=== PATIENT | female | born 1960 | race Hispanic/Latino ===

== ENCOUNTER 2020-02-22 11:00 | Emergency (ER) | payer SELFPAY ==
[~2020-02-22] VITALS: Ht 165.1 cm; Wt 74.8 kg
--- NOTE | 2020-02-22 13:24 | Diagnostic Imaging Report ---
X-ray chest AP portable Comparison: None History: Cough fever Findings: Central airways unremarkable. Heart size normal. Atherosclerotic tortuous aorta. No pleural effusion. No pneumothorax. Bilateral lower lung zone focal opacities. Right-sided appear more rounded. Left side appear more discoid. Visualized skeleton and upper abdomen unremarkable. Impression: Bilateral lower lung zone opacities. Viral pneumonitis cannot be ruled out. Clinical correlation is recommended. Signed by: Julio Mckeon MD on 02/22/2020 1:20 PM
[2020-02-22] MEDS ORDERED: AZITHROMYCIN250 MG PO (13:38)
--- NOTE | 2020-03-11 15:03 | Emergency Department Note ---
History of Present Illnes History of Present Illness Chief Complaint: COVID PUI History of Present Illness This is a 59 year old female arrives to the ED with complaints of cough fever and generalized malaise . HERE FOR COUGH AND SHORTNESS OF BREATH, CLIENT STATES THAT SHE HAS BEEN COUGHING SINCE SATURDAY AND WAS TESTED FOR COVID ON SATURDAY AND STILL AWAITING RESULTS. CURRENTLY ON ABX, ALBUTEROL AND COUGH SYRUP. ALERT AND ORIENTED X4, VSS. Historian: Patient Arrival Mode: Car Onset (how long ago): day(s) Severity: mild Duration (how long): day(s) Timing of current episode: constant Progression: unchanged Chronicity: new Relieving factors: none Past Medical/Family History Physician Review I have reviewed the patient's past medical and family history. Any updates have been documented here. Past Medical History Recent Fever: Yes Clinical Suspicion of Infectio: Yes New/Unexplained Change in Ment: No Past Medical History: Diabetes Past Surgical History: None Social History Smoking Cessation: Never Smoker Alcohol Use: None Any Illegal Drug Use: No TB Exposure/Symptoms: No Physically hurt or threatened: No Other Last Tetanus: OOD Any Pre-Existing Lines (PICC,: No Is patient up to date on immun: Yes Last Flu: NONE Last Pneumovax: NONE Review of Systems Review of Systems Constitutional: Reports as per HPI, Reports malaise, Reports weakness EENTM: Reports no symptoms Cardiovascular: Reports no symptoms Respiratory: Reports as per HPI, Reports cough, Reports dyspnea Gastrointestinal: Reports no symptoms Genitourinary: Reports no symptoms Musculoskeletal: Reports no symptoms Integumentary: Reports no symptoms Neurological: Reports no symptoms Psychological: Reports no symptoms Endocrine: Reports no symptoms Hematological/Lymphatic: Reports no symptoms Physical Exam Related Data Allergies: Coded Allergies: No Known Allergies (Unverified , 02/22/20) Triage Vital Signs Vital Signs Date Time Temp Pulse Resp B/P (MAP) Pulse Ox O2 Delivery O2 Flow Rate FiO2 02/22/20 11:17 100.3 101 18 127/75 99 Vital signs reviewed: Yes Physical Exam CONSTITUTIONAL Constitutional: Present well-developed, Present well-nourished HENT HENT: Present normocephalic, Present atraumatic, Present oropharynx clear/moist, Present nose normal HENT L/R: Present left ext ear normal, Present right ext ear normal EYES Eyes: Reports PERRL, Reports conjunctivae normal NECK Neck: Present ROM normal PULMONARY Pulmonary: Present effort normal, Present breath sounds normal CARDIOVASCULAR Cardiovascular: Present regular rhythm, Present heart sounds normal, Present capillary refill normal, Present normal rate GASTROINTESTINAL Abdominal: Present soft, Present nontender, Present bowel sounds normal GENITOURINARY Genitourinary: Present exam deferred SKIN Skin: Present warm, Present dry MUSCULOSKELETAL Musculoskeletal: Present ROM normal NEUROLOGICAL Neurological: Present alert, Present oriented x 3, Present no gross motor or sensory deficits PSYCHOLOGICAL Psychological: Present mood/affect normal, Present judgement normal Results Imaging Imaging results reviewed: Yes Impressions Findings: Central airways unremarkable. Heart size normal. Atherosclerotic tortuous aorta. No pleural effusion. No pneumothorax. Bilateral lower lung zone focal opacities. Right-sided appear more rounded. Left side appear more discoid. Visualized skeleton and upper abdomen unremarkable. Impression: Bilateral lower lung zone opacities. Viral pneumonitis cannot be ruled out. Clinical correlation is recommended. Assessment & Plan Medical Decision Making MDM 59-year-old well-appearing [place] arrives to the ED with complaints of cough fever loss of taste and smell. Patient is clinically presenting with signs and symptoms consistent with Covid 19. Patient informed she is positive until proven otherwise. Patient's oxygen saturation remained 99% even on exertion, no evid ence of tachypnea or dyspnea noted in the ED. Spoke present length about the importance of sleeping on her stomach and rotating from side to side. Z-Dread given, signs and symptoms for return discussed. In the light of the Covid pandemic, disaster medicine care was given- Patient's imaging reviewed,- chest x-ray shows questionable patchy airspace opacities . Patient clinically appears well, outpatient pulmonary follow-up given. The red flags for return to emergency department given. Patient understands the emergency department is open at all times to serve her needs as well as the needs of the community and given that he requires no supplemental oxygen and is speaking in full sentences with no distress he is stable to go home and quarantine. Assessment & Plan Final Impression: (1) COVID-19 Depart Disposition: HOME, SELF-CARE Last Vital Signs Date Time Temp Pulse Resp B/P (MAP) Pulse Ox O2 Delivery O2 Flow Rate FiO2 02/22/20 14:03 97.7 90 18 130/68 100 Home Meds Active Scripts Azithromycin (Z-DREAD) 250 Mg Tablet, 1 PKG PO DIRECTED, #1 PKG 0 Refills Prov:NISSA JARQUIN DO 02/22/20 NISSA JARQUIN DO Mar 11, 2020 15:03
== END 2020-02-22 14:08 | disposition home or self-care (01) ==
LOC: ER 11:00
DX: U07.1 COVID-19 (principal); R50.9 Fever, unspecified; R05 Cough; R53.81 Other malaise; E11.9 Type 2 diabetes mellitus without complications
CPT/HCPCS: 71045; 87635; 99283

== ENCOUNTER 2022-07-11 11:34 | Emergency (ER) | payer SELFPAY ==
[~2022-07-11] VITALS: Ht 154.9 cm; Wt 71.2 kg
[~2022-07-11 11:34] MED LIST: AZITHROMYCIN250 MG PO
[2022-07-11] MEDS ORDERED: CLINDAMYCIN HCL 150 MG CAP PO SCH (12:00)
[2022-07-11] MEDS ORDERED: CLEOCIN HCL150 MG PO (12:10)
[2022-07-11] MEDS ORDERED: CLINDAMYCIN HC150 MG PO (12:14)
== END 2022-07-11 12:50 | disposition home or self-care (01) ==
LOC: ER 11:39
DX: N64.4 Mastodynia (principal); N63.20 Unspecified lump in the left breast, unspecified quadrant; I10 Essential (primary) hypertension; E11.9 Type 2 diabetes mellitus without complications
CPT/HCPCS: 99282